=== PATIENT | male | born 1970 | race Hispanic/Latino ===

== ENCOUNTER 2017-02-16 11:48 | Day surgery (SDC) | payer OTHER ==
[2017-02-16] MEDS ORDERED: PERCOCET 5/325 PO PRN (12:57)
[2017-02-16] MEDS ORDERED: DILAUDID IV PRN (12:57)
[2017-02-16] MEDS ORDERED: ZOFRAN IV PRN (12:57)
--- NOTE | 2017-02-16 12:57 | Anesthesia Day of Surgery ---
Anesthesia Day of Surgery - Day of Surgery Patient Examined: Yes Patient H&P Reviewed: Yes Patient is NPO: Yes
--- NOTE | 2017-02-16 12:57 | Anesthesia Consultation ---
Anesthesia Consult and Med Hx Date of service: 02/16/17 - Airway Anesthetic Teeth Evaluation: Good ROM Head & Neck: Adequate Mental/Hyoid Distance: Adequate Mallampati Class: Class II Intubation Access Assessment: Probably Good - Pulmonary Exam CTA: Yes - Cardiac Exam Cardiac Exam: RRR - Pre-Operative Health Status ASA Pre-Surgery Classification: ASA2 Proposed Anesthetic Plan: General - Pulmonary Hx Smoking: No Hx Sleep Apnea: No (LARY PRE SCREEN LOW RISK) - Cardiovascular System Hx Hypertension: No - Central Nervous System Hx Back Pain: Yes (FROM STONE) - Other Systems Hx Cancer: No
[2017-02-16] MEDS ORDERED: VERSED IV NR (13:00)
[2017-02-16] MEDS ORDERED: LACTATED RINGERS 1,000 ML IV SCH (13:00)
[2017-02-16] MEDS ORDERED: PEPCID PO NR (13:00)
[2017-02-16] MEDS ORDERED: NACL BACTERIOSTATIC INFILTRATI ONE (13:58)
[2017-02-16] MEDS ORDERED: ANCEF/STERILE WATER 2 GM/20 ML IV NR (14:00)
--- NOTE | 2017-02-16 14:45 | XRay Report ---
KUB. History: Kidney stone. Findings: 2 round calcifications are seen projected over the left kidney, probably representing renal stones. There are no other significant findings.
[2017-02-16] MEDS ORDERED: DILAUDID IV ONE (15:50)
[2017-02-16] MEDS ORDERED: SUBLIMAZE ONE ×2 (16:07→17:56)
[2017-02-16] MEDS ORDERED: DIPRIVAN 10 MG/ML IV ONE ×2 (16:07→16:25)
[2017-02-16] MEDS ORDERED: XYLOCAINE MPF 2% ONE (16:10)
--- NOTE | 2017-02-16 16:30 | Short Stay Summary ---
Short Stay Documentation Date of service: 02/16/17 - History H&P: obtained from office - Allergies and Medications Current Medications: Allergies No Known Allergies Allergy (Verified 02/15/17 10:05) Home Medications Medication Instructions Recorded Confirmed Last Taken Type Cetirizine HCl [ZyrTEC] 10 mg PO PRN PRN 02/15/17 02/16/17 02/13/17 History HYDROcodone/APAP 10-325 [Wiergate 1 each PO Q6HR PRN 02/15/17 02/16/17 10 Days Ago History 10/325] Nitrofurantoin Mcpherson/M-Cryst 100 mg PO Q12HR 02/15/17 02/15/17 02/15/17 History [Macrobid CAP] Ondansetron [Zofran TAB] 4 mg PO Q8HR PRN 02/15/17 02/15/17 02/15/17 History Ranitidine HCl [Zantac 150 MG TAB] 150 mg PO PRN PRN 02/15/17 02/16/17 02/15/17 History Tamsulosin [Flomax] 0.4 mg PO QHS 02/15/17 02/15/17 02/15/17 History Active Medications Cefazolin Sodium (Ancef/Sterile Water 2 Gm/20 Ml) 2 gm IV PREOP NR Stop: 02/16/17 23:59 Famotidine (Pepcid) 20 mg PO PREOP NR Stop: 02/16/17 23:59 Last Admin: 02/16/17 14:04 Dose: 20 mg Hydromorphone HCl (Dilaudid) 0.5 mg IV Q10MIN PRN PRN Reason: Pain , Severe (7-10) Stop: 02/16/17 23:59 Lactated Ringer's (Lactated Ringers) 1,000 mls @ 125 mls/hr IV DIRECT JOHN Last Admin: 02/16/17 14:05 Dose: 125 mls/hr Midazolam HCl (Versed) 2 mg IV PREOP NR Stop: 02/16/17 23:59 Last Admin: 02/16/17 14:16 Dose: 2 mg - Brief post op/procedure progress note Date of procedure: 02/16/17 Pre-op diagnosis: right ureteral stone Post-op diagnosis: same Procedure: right urs, laser, sbe, stent 6x28 Anesthesia: GETA Findings: no dev, sever stenosis; making complica Surgeon: LALA TAMAYO Estimated blood loss: minimal Pathology: list (stones) Specimen disposition: to lab Condition: stable - Hospital course Hospital course: orpacuhome - Disposition Condition at discharge: Good Disposition: DC-01 TO HOME OR SELFCARE Short Stay Discharge Plan Activity: advance as tolerated Diet: advance as tolerated Follow up with: LALA TAMAYO MD [Staff Physician] - 7 Days
[2017-02-16] MEDS ORDERED: PROAIR IH ONE (16:31)
[2017-02-16] MEDS ORDERED: ZOFRAN ONE (16:33)
[2017-02-16] MEDS ORDERED: DECADRON ONE (16:33)
[2017-02-16] MEDS ORDERED: LACTATED RINGERS 1,000 ML ONE (17:12)
[2017-02-16] MEDS ORDERED: WATER FOR IRRIG STERILE IR ONE (18:00)
[2017-02-16 20:54] VITALS: BP 135/83
--- NOTE | 2017-02-17 07:33 | Fluoroscopy Report ---
Findings: History of right ureteral calculus is given. Fluoroscopy was provided by radiology during retrograde urography by urology. [employer] film of the abdomen demonstrates an approximate 5 mm right paraspinal calcification at the level of L4. Contrast agent was injected into the right collecting system which demonstrates this to be a mildly obstructing right ureteral stone. Subsequent images demonstrate ureteroscopy, stone extraction, balloon dilatation of the right ureter and right ureteral stent placement. There is adequate drainage of the right collecting system on the final image. The left pyelogram was normal. Impression: Right ureteral stone removed. Right ureteral stent placed and in good position. Correlate with the procedural report by Dr. Alva if needed.
--- NOTE | 2017-02-23 01:43 | Operative Report ---
PREOPERATIVE DIAGNOSIS: Right ureteral stone 5 to 7 mm. POSTOPERATIVE DIAGNOSIS: Right ureteral stone 5 to 7 mm. PROCEDURE: Right ureteroscopy, laser stone basket extraction 6 x 28 double-J stent. SURGEON: Nabeel Alva MD ANESTHESIA: General. ESTIMATED BLOOD LOSS: Minimal. SPECIMENS: Stones. DISPOSITION: Stable to PACU. FINDINGS: Some significant stenosis making the procedure more complicated. CLINICAL INDICATIONS: Counseled RCBA, antibiotics, SCDs. The patient desired to proceed with this procedure having pain and unable to fragment with ESWL was counseled on risks, benefits, complications and alternatives, antibiotics, SCDs. DESCRIPTION OF PROCEDURE: The patient was transferred to the OR suite in supine position, anesthesia, dorsal lithotomy position, prepped and draped in standard fashion. A 22-Tuvaluan scope passed. Pancystoscopy, 30 and 70 degree lens, no tumors or lesions. Left retrograde 8-Tuvaluan cone tipped catheter within normal limits with no filling defects or hydro. Repeated on the right side but noted some hydroureter. Glidewire was passed up beyond this into the right renal pelvis. Next, a balloon dilator passed and dilated the distal ureter, proximal 3 to 4 cm at about 9 atmospheres. This was then removed. Rigid ureteroscope passed. We did pass this up the dilator placed, passed through the stenosis of the ureter. Next, a rigid ACMI ureteroscope was passed. This was difficult to pass over the bony pelvis. It was very difficult and there appeared to be some stenosis. We were able to get just under the stone. Laser fiber passed. We began to fragment at about 3.6 nieto. Holmium laser was used to fragment the stone into smaller and smaller pieces. This was tedious and difficult because we could not pass the scope much more proximal. Every time the stone moved we had to pass the triceps grasper and pull the stone lower and this was very tedious to keep it from being pushed back into the ureter or kidney. This was done to attempt fragment as much of the stone as possible. Stone fragments were removed dropped in the bladder, several fragments dropped in the bladder. Scope passed proximally. There was not a large visible stone and we suspected all stone fragments were removed, but could not definitively tell if there was any, could be some push back to even more proximal. It was elected to pass the second wire and attempted passing a flexible scope just to inspect. The wire was passed, the scope withdrawn. Flexible ureteroscope passed, but unable to pass this beyond this area. The flexible ureteroscope was then ____. A 6 x 28 double-J stent was passed over the wire under direct and fluoroscopic visualization. When the wire and instrument was removed, nice proximal J, nice distal J in the bladder, bladder drained. The patient awakened and transferred to PACU in good and stable condition. PLAN: The patient will follow up in office. We will have to consider options of either removing stent and seeing if there were any small fragments passed, but it was difficult to pull up in 1 to 3 mm fragments beyond stenosed area hopefully with the stent in for some time, this ____. Plan is to possibly pull the stent versus repeat ureteroscopy in staged fashion. The patient, at the end of the procedure, was awakened, but prior to awakening testicle exam showed no nodules or masses and rectal exam revealed no nodules or masses. The patient awakened and transferred to the PACU in good and stable condition. JOB# [id number] ATS/NTS
== END 2017-02-16 20:30 | disposition home or self-care (01) ==
LOC: OR 11:48
PROVIDERS: ATTEND Urology
DX: N20.1 Calculus of ureter (principal); N13.4 Hydroureter; I10 Essential (primary) hypertension; Z79.899 Other long term (current) drug therapy; Z98.890 Other specified postprocedural states; Z98.52 Vasectomy status; Z84.1 Family history of disorders of kidney and ureter; Z83.3 Family history of diabetes mellitus
CPT/HCPCS: 36415; 52356; 74000; 74420; 74485; 82365; A4217; C1726; C1758; C1769; C2617; J0690; J1100; J1170; J2250; J2405; J2704; J3010; J7120; Q9967

== ENCOUNTER 2017-07-01 10:23 | Day surgery (SDC) | payer OTHER ==
[~2017-07-01 10:23] MED LIST: ANCEF/STERILE WATER 2 GM/20 ML 2 GM/20 ML SYRINGE IV NR
--- NOTE | 2017-07-01 11:06 | Anesthesia Consultation ---
Anesthesia Consult and Med Hx Date of service: 07/01/17 - Airway Anesthetic Teeth Evaluation: Good ROM Head & Neck: Adequate Mental/Hyoid Distance: Adequate Mallampati Class: Class III Intubation Access Assessment: Possibly Difficult - Pre-Operative Health Status ASA Pre-Surgery Classification: ASA2 Proposed Anesthetic Plan: General - Pulmonary Hx Smoking: No Hx Sleep Apnea: No (LARY PRE SCREEN LOW RISK) - Cardiovascular System Hx Hypertension: No - Central Nervous System Hx Back Pain: Yes (FROM STONE) - Gastrointestinal Hx Gastroesophageal Reflux Disease: Yes - Other Systems Hx Cancer: No Hx Obesity: Yes (BMI 34.2)
--- NOTE | 2017-07-01 11:06 | Anesthesia Day of Surgery ---
Anesthesia Day of Surgery - Day of Surgery Patient Examined: Yes Patient H&P Reviewed: Yes Patient is NPO: Yes
[2017-07-01] MEDS ORDERED: NACL 0.9% 1000 ML 1,000 ML ONE (11:23)
[2017-07-01] MEDS ORDERED: LACTATED RINGERS 1,000 ML IV SCH (12:00)
[2017-07-01] MEDS ORDERED: PEPCID IV NR (12:00)
[2017-07-01] MEDS ORDERED: VERSED IV NR (12:00)
[2017-07-01] MEDS ORDERED: NACL 0.9% 1000 ML 1,000 ML IV SCH (12:00)
[2017-07-01] MEDS ORDERED: SUBLIMAZE ONE (12:29)
[2017-07-01] MEDS ORDERED: XYLOCAINE MPF 2% ONE (12:29)
[2017-07-01] MEDS ORDERED: DIPRIVAN 10 MG/ML IV ONE (12:30)
--- NOTE | 2017-07-01 13:27 | Post Operative Note ---
Date of procedure: 07/01/17 Pre-op diagnosis: Renal stones Post-op diagnosis: same Findings: as above Procedure: ESWL Anesthesia: RADU Surgeon: FUAD ROSA Estimated blood loss: none Pathology: none Condition: stable Disposition: PACU
--- NOTE | 2017-07-01 13:28 | Discharge Summary ---
Short Stay Discharge Plan Activity: other (no straining ) Weight Bearing Status: Full Weight Bearing Diet: low fat, low cholesterol, low salt Special Instructions: other (inc fluids ) Follow up with: PRIMARY CAREMD [Primary Care Provider] - 7 Days LALA TAMAYO MD [Staff Physician] - 7 Days
--- NOTE | 2017-07-01 14:06 | Operative Report ---
PREOPERATIVE DIAGNOSIS: Left renal stones. POSTOPERATIVE DIAGNOSES: Left renal stones. PROCEDURE: Left lithotripsy. SURGEON: Du Argueta MD ANESTHESIA: General. FINDINGS: This is a gentleman with intermittent flank pain, who presents for left lithotripsy. Stones are well seen. All risks and complications were discussed. DESCRIPTION OF PROCEDURE: The patient was brought to the operating room and placed on the operating table. Following induction of anesthesia, placed and over the F2 focal point, stone was well seen. The 7 mm stone was focused on. Shocks were begun at 1 kV, a renal pause was carried out, maximum shocks were 6 kV approximately 300 shocks at 6 kV. The patient tolerated the procedure well. The stone did spread out, tolerated procedure well and brought to recovery in stable condition. JOB# [id number] RAJESH/CHERYL
[2017-07-01] MEDS ORDERED: PERCOCET 5/325 PO ONE (15:04)
[2017-07-01 17:11] VITALS: BP 129/77
== END 2017-07-01 15:15 | disposition home or self-care (01) ==
LOC: OR 10:23
PROVIDERS: ATTEND Urology
DX: N20.0 Calculus of kidney (principal); K21.9 Gastro-esophageal reflux disease without esophagitis; E66.9 Obesity, unspecified; Z68.34 Body mass index [BMI] 34.0-34.9, adult; Z98.52 Vasectomy status; Z98.890 Other specified postprocedural states
CPT/HCPCS: 50590; J0690; J2250; J2704; J3010; J7030

== ENCOUNTER 2018-09-01 12:30 | Day surgery (SDC) | payer OTHER ==
[2018-09-01] MEDS ORDERED: ANCEF/STERILE WATER 2 GM/20 ML IV NR (12:50)
[2018-09-01] MEDS ORDERED: LACTATED RINGERS 1,000 ML IV SCH (13:00)
[2018-09-01] MEDS ORDERED: SUBLIMAZE ONE (14:18)
[2018-09-01] MEDS ORDERED: DIPRIVAN 10 MG/ML IV ONE (14:19)
[2018-09-01] MEDS ORDERED: XYLOCAINE MPF 2% ONE (14:19)
[2018-09-01] MEDS ORDERED: ZOFRAN ONE (14:19)
--- NOTE | 2018-09-01 14:39 | Post Operative Note ---
Date of procedure: 09/01/18 Pre-op diagnosis: l renal stones Post-op diagnosis: same Findings: as above Procedure: L ESWL Anesthesia: RADU Surgeon: FUAD ROSA Estimated blood loss: none Pathology: none Condition: stable Disposition: PACU
--- NOTE | 2018-09-01 15:01 | Operative Report ---
PREOPERATIVE DIAGNOSIS: Left renal stone, history of stones. POSTOPERATIVE DIAGNOSES: Left renal stone, history of stones. PROCEDURE: In situ left lithotripsy. SURGEON: Du Argueta MD ANESTHESIA: General. FINDINGS: This gentleman with intermittent flank pain. He has a prominent stone in left kidney, now presents for lithotripsy. DESCRIPTION OF PROCEDURE: The patient brought to the operating room and placed on the operating table. Following induction of anesthesia, stone was well localized, both the AP and oblique image. Shocks were begun at 1 kV increased to a maximum of 8 kV. The patient tolerated the procedure well. No stent was required. No cystoscopic manipulation. He needs to follow up. The patient tolerated procedure well. There was clearly some fragmentation of the stone, was brought to recovery in stable condition. JOB# [id number] RAJESH/CHERYL
[2018-09-01] MEDS ORDERED: NORCO 5/325 PO PRN (15:34)
[2018-09-01] MEDS: DILAUDID IV PRN ×2 (15:40→15:50)
[2018-09-01] MEDS ORDERED: DILAUDID ONE (15:41)
--- NOTE | 2018-09-01 16:02 | Anesthesia Consultation ---
Anesthesia Consult and Med Hx Date of service: 09/01/18 - Airway Anesthetic Teeth Evaluation: Good ROM Head & Neck: Adequate Mental/Hyoid Distance: Adequate Mallampati Class: Class III Intubation Access Assessment: Possibly Difficult - Pulmonary Exam CTA: Yes - Cardiac Exam Cardiac Exam: RRR - Pre-Operative Health Status ASA Pre-Surgery Classification: ASA2 Proposed Anesthetic Plan: General - Pulmonary Hx Smoking: No Hx Sleep Apnea: No (LARY PRE SCREEN LOW RISK) - Cardiovascular System Hx Hypertension: No - Central Nervous System Hx Back Pain: Yes (FROM STONE) - Gastrointestinal Hx Gastroesophageal Reflux Disease: Yes - Other Systems Hx Cancer: No Hx Obesity: Yes
[2018-09-01 16:03] VITALS: BP 135/82
--- NOTE | 2018-09-01 16:03 | Anesthesia Day of Surgery ---
Anesthesia Day of Surgery - Day of Surgery Patient Examined: Yes Patient H&P Reviewed: Yes Patient is NPO: Yes
--- NOTE | 2018-09-01 16:04 | Post Anesthesia Evaluation ---
- Post Anesthesia Evaluation Patient Participated: Yes Airway Patent: Yes Stable Respiratory Function: Yes Temp > 96.8F: Yes Pain Manageable: Yes Adequeate Hydration: Yes Anesthesia Complications: No
== END 2018-09-01 16:30 | disposition home or self-care (01) ==
LOC: OR 12:30
PROVIDERS: ATTEND Urology
DX: N20.0 Calculus of kidney (principal); K21.9 Gastro-esophageal reflux disease without esophagitis; E66.9 Obesity, unspecified; Z68.34 Body mass index [BMI] 34.0-34.9, adult; Z98.890 Other specified postprocedural states; Z79.899 Other long term (current) drug therapy
CPT/HCPCS: 50590; J1170; J2405; J2704; J3010; J7120